=== PATIENT | female | born 1985 | race American Indian/Alaskan Native ===

== ENCOUNTER 2017-10-28 17:04 | Emergency (ER) | payer SELFPAY ==
[2017-10-28 17:26] VITALS: BP 142/82
[2017-10-28] MEDS ORDERED: LIDOCAINE VISCOUS 2% PO ONE (20:38)
[2017-10-28] MEDS ORDERED: MOTRIN PO ONE (20:38)
--- NOTE | 2017-10-28 21:09 | Emergency Department Report ---
ED ENT HPI - General Chief complaint: Sore Throat Stated complaint: SORE THROAT Time Seen by Provider: 10/28/17 20:14 Source: patient Mode of arrival: Ambulatory Limitations: No Limitations - History of Present Illness Initial comments: This is a 32-year-old female nontoxic, well nourished in appearance, no acute signs of distress presents to the ED with c/o of sore throat x4 days. Patient stated gets frequent strep throat. Patient denies any drooling, fever, chills, headache, stiff neck, nausea, vomiting, chest pain, shortness of breathe, numbness, tingling. Patient stated she usually gets prescribed amoxicillin. Patient denies any allergies or PMH. MD complaint: sore throat -: days(s) (4) Location: throat Severity: mild Severity scale (0 -10): 8 Quality: aching Consistency: constant Improves with: none Worsens with: swallowing Associated Symptoms: pain with swallowing, sore throat. denies: fever, cough, gum swelling, toothache, tinnitus, hearing loss, discharge from ear, rhinorrhea - Related Data Previous Rx's Medication Instructions Recorded Last Taken Type Guaifenesin/Codeine Phosphate 10 ml PO Q6H PRN #120 ml 08/08/13 Unknown Rx [Cheratussin AC Syrup] Lidocaine Viscous 2% [Xylocaine 10 ml MM Q4H PRN #100 ml 08/08/13 Unknown Rx Viscous 2%] Gentamicin 0.3% Ophth Soln 2 drops OP Q4H 5 Days bottle 05/17/15 Unknown Rx Amoxicillin [Trimox CAP] 500 mg PO BID #20 capsule 05/19/15 Unknown Rx Ibuprofen [Motrin] 800 mg PO Q8HR PRN #30 tablet 05/19/15 Unknown Rx Amoxicillin/K Clav Tab [Augmentin 1 tab PO Q12HR #20 tab 08/23/16 Unknown Rx 875 mg] Ibuprofen [Motrin] 600 mg PO Q6H PRN #20 tablet 08/23/16 Unknown Rx Amoxicillin [Amoxicillin TAB] 875 mg PO BID #20 tablet 10/28/17 Unknown Rx Nystas/Diphen/Xyl Visc/Mylanta 30 ml PO Q8H PRN 10 Days ml 10/28/17 Unknown Rx [Magic Mouthwash] Allergies Allergy/AdvReac Type Severity Reaction Status Date / Time No Known Allergies Allergy Verified 05/19/15 10:03 ED Dental HPI - General Chief complaint: Sore Throat Stated complaint: SORE THROAT Time Seen by Provider: 10/28/17 20:14 Source: patient Mode of arrival: Ambulatory Limitations: No Limitations - Related Data Previous Rx's Medication Instructions Recorded Last Taken Type Guaifenesin/Codeine Phosphate 10 ml PO Q6H PRN #120 ml 08/08/13 Unknown Rx [Cheratussin AC Syrup] Lidocaine Viscous 2% [Xylocaine 10 ml MM Q4H PRN #100 ml 08/08/13 Unknown Rx Viscous 2%] Gentamicin 0.3% Ophth Soln 2 drops OP Q4H 5 Days bottle 05/17/15 Unknown Rx Amoxicillin [Trimox CAP] 500 mg PO BID #20 capsule 05/19/15 Unknown Rx Ibuprofen [Motrin] 800 mg PO Q8HR PRN #30 tablet 05/19/15 Unknown Rx Amoxicillin/K Clav Tab [Augmentin 1 tab PO Q12HR #20 tab 08/23/16 Unknown Rx 875 mg] Ibuprofen [Motrin] 600 mg PO Q6H PRN #20 tablet 08/23/16 Unknown Rx Amoxicillin [Amoxicillin TAB] 875 mg PO BID #20 tablet 10/28/17 Unknown Rx Nystas/Diphen/Xyl Visc/Mylanta 30 ml PO Q8H PRN 10 Days ml 10/28/17 Unknown Rx [Magic Mouthwash] Allergies Allergy/AdvReac Type Severity Reaction Status Date / Time No Known Allergies Allergy Verified 05/19/15 10:03 ED Review of Systems ROS: Stated complaint: SORE THROAT Other details as noted in HPI Constitutional: denies: chills, fever Eyes: denies: eye pain, eye discharge, vision change ENT: throat pain. denies: ear pain Respiratory: denies: cough, shortness of breath, wheezing Cardiovascular: denies: chest pain, palpitations Endocrine: no symptoms reported Gastrointestinal: denies: abdominal pain, nausea, diarrhea Genitourinary: denies: urgency, dysuria, discharge Musculoskeletal: denies: back pain, joint swelling, arthralgia Skin: denies: rash, lesions Neurological: denies: headache, weakness, paresthesias Psychiatric: denies: anxiety, depression Hematological/Lymphatic: denies: easy bleeding, easy bruising ED Past Medical Hx - Past Medical History Previous Medical History?: No - Surgical History Past Surgical History?: No - Social History Smoking Status: Never Smoker Substance Use Type: None - Medications Home Medications: Home Medications Medication Instructions Recorded Confirmed Last Taken Type Guaifenesin/Codeine Phosphate 10 ml PO Q6H PRN #120 ml 08/08/13 Unknown Rx [Cheratussin AC Syrup] Lidocaine Viscous 2% [Xylocaine 10 ml MM Q4H PRN #100 ml 08/08/13 Unknown Rx Viscous 2%] Gentamicin 0.3% Ophth Soln 2 drops OP Q4H 5 Days bottle 05/17/15 Unknown Rx Amoxicillin [Trimox CAP] 500 mg PO BID #20 capsule 05/19/15 Unknown Rx Ibuprofen [Motrin] 800 mg PO Q8HR PRN #30 tablet 05/19/15 Unknown Rx Amoxicillin/K Clav Tab [Augmentin 1 tab PO Q12HR #20 tab 08/23/16 Unknown Rx 875 mg] Ibuprofen [Motrin] 600 mg PO Q6H PRN #20 tablet 08/23/16 Unknown Rx Amoxicillin [Amoxicillin TAB] 875 mg PO BID #20 tablet 10/28/17 Unknown Rx Nystas/Diphen/Xyl Visc/Mylanta 30 ml PO Q8H PRN 10 Days ml 10/28/17 Unknown Rx [Magic Mouthwash] ED Physical Exam - General Limitations: No Limitations General appearance: alert, in no apparent distress - Head Head exam: Present: atraumatic, normocephalic - Eye Eye exam: Present: normal appearance, PERRL, EOMI Pupils: Present: normal accommodation - ENT ENT exam: Present: mucous membranes moist, TM's normal bilaterally, normal external ear exam - Expanded ENT Exam Expanded Ear exam: Present: normal external inspection Mouth exam: Present: normal external inspection, tongue normal. Absent: drooling, trismus, muffled voice, tongue elevation, laceration Teeth exam: Present: normal inspection Throat exam: Positive: tonsillar erythema, tonsillomegaly (2+), tonsillar exudate, other (uvula midline. No abscess or swelling noted. ). Negative: R peritonsillar mass, L peritonsillar mass - Neck Neck exam: Present: normal inspection, full ROM, lymphadenopathy (bilateral tonsillar). Absent: tenderness, meningismus, thyromegaly - Respiratory Respiratory exam: Present: normal lung sounds bilaterally. Absent: respiratory distress, wheezes, rales, rhonchi, stridor, chest wall tenderness, accessory muscle use, decreased breath sounds, prolonged expiratory - Cardiovascular Cardiovascular Exam: Present: regular rate, normal rhythm, normal heart sounds. Absent: irregular rhythm, systolic murmur, diastolic murmur, rubs, gallop - GI/Abdominal GI/Abdominal exam: Present: soft, normal bowel sounds. Absent: distended, tenderness, guarding, rebound, rigid, diminished bowel sounds - Rectal Rectal exam: Present: deferred - Extremities Exam Extremities exam: Present: normal inspection, full ROM, normal capillary refill. Absent: tenderness, pedal edema, joint swelling, calf tenderness - Back Exam Back exam: Present: normal inspection, full ROM. Absent: tenderness, CVA tenderness (R), CVA tenderness (L), muscle spasm, paraspinal tenderness, vertebral tenderness, rash noted - Neurological Exam Neurological exam: Present: alert, oriented X3, CN II-XII intact, normal gait, reflexes normal - Psychiatric Psychiatric exam: Present: normal affect, normal mood - Skin Skin exam: Present: warm, dry, intact, normal color. Absent: rash ED Course Vital Signs 10/28/17 10/28/17 17:24 20:51 Temperature 98.5 F Pulse Rate 93 H Respiratory 16 18 Rate Blood Pressure 142/82 O2 Sat by Pulse 100 Oximetry - Reevaluation(s) Reevaluation #1: 10/28/17 21:42 Patient is speaking in full sentences with no signs of distress noted. ED Medical Decision Making - Medical Decision Making This is a 32-year-old female that presents with tonsillitis. Patient is stable and was examined by me. There is no tonislar abscess. Pt received Motrin and lidocaine visous in the ED. Pateint is d/s with amox. At time of discharge, the patient does not seem toxic or ill in appearance. No acute signs of distress noted. Patient agrees to discharge treatment plan of care. No further questions noted by the patient. Critical care attestation.: If time is entered above; I have spent that time in minutes in the direct care of this critically ill patient, excluding procedure time. ED Disposition Clinical Impression: Tonsillitis with exudate Disposition: - TO HOME OR SELFCARE Is pt being admited?: No Does the pt Need Aspirin: No Condition: Stable Instructions: Amoxicillin (By mouth), Tonsillitis (ED) Additional Instructions: Follow-up with a primary care doctor in 3-5 days or if symptoms worsen and continue return to emergency room as soon as possible. Prescriptions: Amoxicillin [Amoxicillin TAB] 875 mg PO BID #20 tablet Nystas/Diphen/Xyl Visc/Mylanta [Magic Mouthwash] 30 ml PO Q8H PRN 10 Days ml PRN Reason: Sore Throat Referrals: BRIAN LEE MD [Primary Care Provider] - 3-5 Days MAUREEN UMANZOR MD [Staff Physician] - 3-5 Days [facility] [Outside] - 3-5 Days [facility] [Outside] - 3-5 Days Forms: Work/School Release Form(ED)
== END 2017-10-28 22:01 | disposition home or self-care (01) ==
LOC: ED 17:04
DX: J03.90 Acute tonsillitis, unspecified (principal)
CPT/HCPCS: 99282